=== PATIENT | female | born 1980 | race Caucasian/White ===

== ENCOUNTER 2017-01-11 14:02 | Inpatient (IN) | payer OTHER ==
[2017-01-11] MEDS: PREDNISONE 20 MG TABLET PO SCH (18:07)
[2017-01-11] MEDS: ACETAMINOPHEN 325 MG TABLET PO PRN ×2 (18:08→22:09)
--- NOTE | 2017-01-11 19:17 | PDOC H&P ---
History of Present Illness Admission Date/PCP: 01/11/17 14:02 TONIA GRIMES NP History of Present Illness: GUSTABO VERMA is a 36 year old female with no significant past medical history who presented to Dr. Han's office with complaints of bruising. The patient awoke 3 days ago with a quarter size bruise on her right forearm. Later on today, the patient seemed to think that the bruise with expanding. She did not recall hurting herself. The next day she noticed more bruises as well as spots on her feet and legs. She went in to see her PCP, Tonia Grimes, nurse practitioner, and was found to have a platelet count of 12. According to her recollection she has not been sick. Well over 3 months ago she recalls having some sort of viral gastroenteritis. She has not started any new medications in the last several months. 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 She feels that this is unusual for her. She feels achy all over but denies any other issues. She denies any bleeding. No blood in the stool, urine, epistaxis, coughing up blood or throwing up blood. In the office, her hgb was found to be 9.2, down from 13.7 yesterday. Past Medical History Medical History: None Past Surgical History Past Surgical History: Reports: Appendectomy Social History Information Source: Patient Lives with: Spouse/Significant other Smoking Status: Former Smoker Frequency of Alcohol Use: Occasional Hx Recreational Drug Use: No Past Social History Note: The patient quit smoking 11 years ago. - Advance Directive Resuscitation Status: Full Code Family History Family History: CAD, Hypertension Parental Family History Reviewed: Yes Children Family History Reviewed: Yes Sibling(s) Family History Reviewed.: Yes Medication/Allergy Home Medications: Bupropion HCl [Bupropion Xl] 150 mg PO DAILY 01/11/17 Citalopram Hydrobromide [Celexa 20 mg Tablet] 20 mg PO DAILY 01/11/17 Loratadine [Claritin] 10 mg PO DAILY 01/11/17 Montelukast Sodium [Singulair 10 mg Tablet] 10 mg PO QHS 01/11/17 Norethindrone-E.estradiol-Iron [Lo Loestrin Fe 1-10 Tablet] 1 each PO QHS Allergies/Adverse Reactions: No Known Allergies Allergy (Unverified 10/07/12 03:32) Review of Systems Review of Systems: Review of systems positive for that listed in the HPI. In addition to this she denies any fever, chills, vomiting, blood in the stool or urine, coughing up blood or throwing up blood. She denies diarrhea, constipation, weight changes, loss of appetite or abdominal pain. She does occasionally have hot flashes and she has had some burning of the eyes since all of this happened. Physical Exam Vital Signs: GENERAL: [This is a well-developed well-nourished appearing overweight white female resting in bed currently in no acute distress. HEENT: Normocephalic. Atraumatic. Trachea is midline. Sclera are anicteric. Moist mucous membranes.] HEART: [Regular rate and rhythm. No murmurs, rubs or gallops.] LUNGS: [Clear to auscultation bilaterally with equal rise and fall of the chest. ] ABDOMEN: [Soft, nontender, nondistended with normoactive bowel sounds] EXTREMETIES: [No clubbing, cyanosis or edema. 2+ peripheral pulses bilaterally. ] NEURO: [Awake, alert and oriented 3. Cranial nerves II through XII are specifically intact. Strength is 5 out of 5 in the upper and lower extremities bilaterally. Skin: The patient has an old bruise by her bra line on the left and a newer bruise by her bra line on the right side of her chest respectively. She also has scattered petechiae in the feet and ankles and on the thigh as well. She has a solitary petechiae in the left eye. She has ecchymosis that seems to be nearly resolved of the right forearm.] Assessment & Plan - Diagnosis (1) Idiopathic thrombocytopenia Plan: Prednisone 50 mg p.o. is recommended. At this point an IV has not been established because of the patient's platelet count. At some point an IV will need to be established in case of emergencies or the desire to switch to IV steroids. Dr. Han will be following this patient. (2) Depression Plan: Continue home medications. (3) Tobacco abuse Plan: Smoking cessation is advised. - Time Time Spent: 30 to 50 Minutes Within: within 72 hours - Inpatient Certification Medical Necessity: Need Close Monitoring Due to Risk of Patient Decompensation
[2017-01-11] MEDS ORDERED: NORETHINDRONE E ESTRADIOL IRON PO SCH (22:00)
[2017-01-11] MEDS: MONTELUKAST SODIUM 10 MG TABLET PO SCH (22:06)
[2017-01-11] MEDS: BUPROPION HCL 75 MG TABLET PO SCH (22:06)
[2017-01-12] MEDS: HYDROCODONE/ACETAMINOPHEN 7.5-325 MG TABLET PO PRN ×2 (01:22→22:04)
[2017-01-12 07:28] LABS: ABSOLUTE LYMPHOCYTES (AUTO) 1.8 10^3/uL (0.5-4.7); ABSOLUTE MONOCYTES (AUTO) 0.4 10^3/uL (0.1-1.4); ABSOLUTE NEUT (AUTO) 9.5 10^3/uL (1.7-8.2); BASOPHILS % (AUTO) 0.1 % (0-2); HEMATOCRIT 38.2 % (36.0-47.0); HEMOGLOBIN 13.9 g/dL (12.0-15.5); HGB HCT DIFFERENCE 3.5; LYMPHOCYTES % (AUTO) 15.4 % (13-45); MEAN CORPUSCULAR HEMOGLOBIN 30.6 pg (27.0-33.4); MEAN CORPUSCULAR HGB CONC 36.4 g/dL (32.0-36.0); MEAN CORPUSCULAR VOLUME 84 fl (80-97); MONOCYTES % (AUTO) 3.5 % (3-13); RED BLOOD COUNT 4.54 10^6/uL (3.72-5.28); RED CELL DISTRIBUTION WIDTH 12.8 % (11.5-14.0); WHITE BLOOD COUNT 11.8 10^3/uL (4.0-10.5)
[2017-01-12 07:30] LABS: ANION GAP 12 (5-19); BLOOD UREA NITROGEN 11 mg/dL (7-20); CALCIUM 9.4 mg/dL (8.4-10.2); CARBON DIOXIDE 22 mmol/L (22-30); CHLORIDE 107 mmol/L (98-107); CREATININE RESULT 0.73 mg/dL (0.52-1.25); GLUCOSE 112 mg/dL (75-110); MAGNESIUM 2.2 mg/dL (1.6-2.3); POTASSIUM 4.5 mmol/L (3.6-5.0); SODIUM 141.4 mmol/L (137-145)
[2017-01-12] MEDS: LORATADINE 10 MG TABLET PO SCH (09:18)
[2017-01-12] MEDS: PREDNISONE 20 MG TABLET PO SCH ×2 (09:18→17:05)
[2017-01-12] MEDS: CITALOPRAM HYDROBROMIDE 20 MG TABLET PO SCH (09:18)
[2017-01-12] MEDS: BUPROPION HCL 75 MG TABLET PO SCH ×2 (09:19→22:04)
--- NOTE | 2017-01-12 09:42 | PDOC CONSULTATION ---
Consultation Consult Date: 01/12/17 Attending physician:: IRINA TAVARES Consult reason:: ITP History of Present Illness Admission Date/PCP: 01/11/17 14:42 STEFAN SMART NP Patient complains of: bruising History of Present Illness: Ms. Taylor is a 36 year old female whom I met for the first time yesterday in my office. She presented with bruising and a PLT count of 12. 3 days prior, she had awoken with a quarter sized bruise on her forearm. Over the next 24 hours, it expanded to a larger area of echymosis. She denies any bleeding other than bruising of her skin. She denies any recent infections or new medications. She has muscle aches all over and has more daytime sleepiness. 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 Lives with: Spouse/Significant other Smoking Status: Former Smoker Frequency of Alcohol Use: Occasional Hx Recreational Drug Use: No Hx Prescription Drug Abuse: No - Advance Directive Resuscitation Status: Full Code Family History Family History: CAD, Hypertension Parental Family History Reviewed: Yes - Paternal grandfather with lung cancer. Father with HTN and hyperlipidemia Children Family History Reviewed: Yes Sibling(s) Family History Reviewed.: Yes Medication/Allergy Home Medications: Bupropion HCl [Bupropion Xl] 150 mg PO DAILY 01/11/17 Citalopram Hydrobromide [Celexa 20 mg Tablet] 20 mg PO DAILY 01/11/17 Loratadine [Claritin] 10 mg PO DAILY 01/11/17 Montelukast Sodium [Singulair 10 mg Tablet] 10 mg PO QHS 01/11/17 Norethindrone-E.estradiol-Iron [Lo Loestrin Fe 1-10 Tablet] 1 each PO QHS Allergies/Adverse Reactions: No Known Allergies Allergy (Unverified 10/07/12 03:32) Review of Systems Constitutional: PRESENT: fatigue. ABSENT: headache(s), weakness Eyes: ABSENT: visual disturbances Ears: ABSENT: hearing changes Nose, Mouth, and Throat: ABSENT: sore throat Cardiovascular: ABSENT: chest pain, palpitations Respiratory: ABSENT: cough, dyspnea Gastrointestinal: ABSENT: constipation, diarrhea, nausea, vomiting Genitourinary: ABSENT: dysuria Musculoskeletal: PRESENT: as per HPI Integumentary: PRESENT: as per HPI Neurological: ABSENT: confusion, numbness, tingling Hematologic/Lymphatic: PRESENT: easy bruising Physical Exam Vital Signs: Temp Pulse Resp BP Pulse Ox 97.5 F 69 18 123/75 99 01/12/17 07:34 01/12/17 07:34 01/12/17 07:34 01/12/17 07:34 01/12/17 07:34 Intake & Output 01/11/17 01/12/17 01/13/17 06:59 06:59 05:59 Intake Total 1380 Balance 1380 Weight 89.3 kg General appearance: PRESENT: no acute distress, well-nourished, other - female. Head exam: PRESENT: atraumatic Eye exam: PRESENT: conjunctiva pink, PERRLA Mouth exam: PRESENT: moist, tongue midline Neck exam: ABSENT: JVD, tenderness Respiratory exam: PRESENT: clear to auscultation jacqueline Cardiovascular exam: PRESENT: RRR. ABSENT: gallop, rubs GI/Abdominal exam: PRESENT: normal bowel sounds, soft. ABSENT: tenderness Rectal exam: PRESENT: deferred Extremities exam: ABSENT: pedal edema Musculoskeletal exam: PRESENT: ambulatory Neurological exam: PRESENT: alert, normal gait Psychiatric exam: PRESENT: appropriate affect Skin exam: PRESENT: other - Echymoses over forarms and back. Results Laboratory Results: 01/12/17 06:14 01/12/17 06:14 01/12/17 01/12/17 06:14 06:14 WBC 11.8 H RBC 4.54 Hgb 13.9 Hct 38.2 MCV 84 MCH 30.6 MCHC 36.4 H RDW 12.8 Plt Count 15 L* Seg Neutrophils % 81.0 H Lymphocytes % 15.4 Monocytes % 3.5 Eosinophils % 0.0 Basophils % 0.1 Absolute Neutrophils 9.5 H Absolute Lymphocytes 1.8 Absolute Monocytes 0.4 Absolute Eosinophils 0.0 Absolute Basophils 0.0 Sodium 141.4 Potassium 4.5 Chloride 107 Carbon Dioxide 22 Anion Gap 12 BUN 11 Creatinine 0.73 Est GFR ( Amer) > 60 Est GFR (Non-Af Amer) > 60 Glucose 112 H Calcium 9.4 Magnesium 2.2 Assessment & Plan - Diagnosis (1) Idiopathic thrombocytopenia Is this a current diagnosis for this admission?: Yes Plan: Continue prednisone 1 mg/kg/day in divided doses. Await Bone Marrow Biopsy results from yesterday. Watch for bleeding. Her HGB is stable today.
[2017-01-12] MEDS ORDERED: (PENDING PHARMACY ID) (Loratadine [Claritin] 10 MG) PO SCH (10:00)
[2017-01-12] MEDS ORDERED: (PENDING PHARMACY ID) (Bupropion Hcl [Bupropion Xl] 150 MG) PO SCH (10:00)
[2017-01-12] MEDS: ACETAMINOPHEN 325 MG TABLET PO PRN (11:38)
--- NOTE | 2017-01-12 17:23 | PDOC PROGRESS REPORT ---
Subjective Progress Note for:: 01/12/17 Subjective:: Feeling a little better. Reports of easy bruising with IV placement all pressure but no overt bleeding. No dysuria polyuria, no urinary frequency, no hematuria or hematemesis or rectal bleeding. Denies abdominal pain, no nausea or vomiting. Physical Exam Vital Signs: Temp Pulse Resp BP Pulse Ox 97.9 F 90 18 118/79 98 01/12/17 15:54 01/12/17 15:54 01/12/17 15:54 01/12/17 15:54 01/12/17 15:54 Intake & Output 01/11/17 01/12/17 01/13/17 06:59 06:59 05:59 Intake Total 1380 Balance 1380 Weight 89.3 kg Exam: GENERAL: Well-developed, no acute distress CARDIOVASCULAR: RRR, normal S1-S2 LUNGS: CTA bilaterally ABDOMEN: Soft, NT, NL bowel sounds EXTREMITIES: No edema, clubbing, cyanosis NEUROLOGICAL: Alert, oriented x 3, nonfocal SKIN: Ecchymosis right forearm, scattered petechiae in the feet and ankles and on the thigh but stable. Results Laboratory Results: 01/12/17 06:14 01/12/17 06:14 01/12/17 01/12/17 06:14 06:14 WBC 11.8 H RBC 4.54 Hgb 13.9 Hct 38.2 MCV 84 MCH 30.6 MCHC 36.4 H RDW 12.8 Plt Count 15 L* Seg Neutrophils % 81.0 H Lymphocytes % 15.4 Monocytes % 3.5 Eosinophils % 0.0 Basophils % 0.1 Absolute Neutrophils 9.5 H Absolute Lymphocytes 1.8 Absolute Monocytes 0.4 Absolute Eosinophils 0.0 Absolute Basophils 0.0 Sodium 141.4 Potassium 4.5 Chloride 107 Carbon Dioxide 22 Anion Gap 12 BUN 11 Creatinine 0.73 Est GFR ( Amer) > 60 Est GFR (Non-Af Amer) > 60 Glucose 112 H Calcium 9.4 Magnesium 2.2 Assessment & Plan - Diagnosis (1) Idiopathic thrombocytopenia Is this a current diagnosis for this admission?: Yes Plan: Platelets stable to slightly improved today. We will continue prednisone 1 mg/ kg/day in divided doses per Dr. Souza's of heme/onc recommendation. Continue to monitor CBC/platelets. (2) Depression Is this a current diagnosis for this admission?: Yes Plan: Stable. Continue current home medications.
[2017-01-12] MEDS: MONTELUKAST SODIUM 10 MG TABLET PO SCH (22:04)
[2017-01-13 06:01] LABS: ABSOLUTE LYMPHOCYTES (AUTO) 2.1 10^3/uL (0.5-4.7); ABSOLUTE MONOCYTES (AUTO) 0.8 10^3/uL (0.1-1.4); ABSOLUTE NEUT (AUTO) 14.8 10^3/uL (1.7-8.2); HEMATOCRIT 37.5 % (36.0-47.0); HEMOGLOBIN 13.4 g/dL (12.0-15.5); HGB HCT DIFFERENCE 2.7; LYMPHOCYTES % (AUTO) 11.6 % (13-45); MEAN CORPUSCULAR HEMOGLOBIN 30.1 pg (27.0-33.4); MEAN CORPUSCULAR HGB CONC 35.7 g/dL (32.0-36.0); MEAN CORPUSCULAR VOLUME 84 fl (80-97); MONOCYTES % (AUTO) 4.5 % (3-13); RED BLOOD COUNT 4.44 10^6/uL (3.72-5.28); RED CELL DISTRIBUTION WIDTH 12.9 % (11.5-14.0); SEGMENTED NEUTROPHILS % (AUTO) 83.9 % (42-78); WHITE BLOOD COUNT 17.6 10^3/uL (4.0-10.5)
[2017-01-13 06:21] LABS: ANION GAP 13 (5-19); BLOOD UREA NITROGEN 16 mg/dL (7-20); CALCIUM 9.5 mg/dL (8.4-10.2); CARBON DIOXIDE 25 mmol/L (22-30); CHLORIDE 106 mmol/L (98-107); CREATININE RESULT 0.71 mg/dL (0.52-1.25); GLUCOSE 115 mg/dL (75-110); POTASSIUM 4.2 mmol/L (3.6-5.0); SODIUM 143.7 mmol/L (137-145)
[2017-01-13] MEDS: CITALOPRAM HYDROBROMIDE 20 MG TABLET PO SCH (09:25)
[2017-01-13] MEDS: LORATADINE 10 MG TABLET PO SCH (09:25)
[2017-01-13] MEDS: PREDNISONE 20 MG TABLET PO SCH ×2 (09:26→17:36)
[2017-01-13] MEDS: BUPROPION HCL 75 MG TABLET PO SCH ×2 (09:26→21:16)
[2017-01-13] MEDS: MONTELUKAST SODIUM 10 MG TABLET PO SCH (21:17)
--- NOTE | 2017-01-14 07:31 | PDOC PROGRESS REPORT ---
Subjective Progress Note for:: 01/13/17 Subjective:: Feeling better. Bruisings better/improving and no overt bleeding. No dysuria polyuria, no urinary frequency, no hematuria or hematemesis or rectal bleeding. Denies abdominal pain, no nausea or vomiting. Physical Exam Vital Signs: Temp Pulse Resp BP Pulse Ox 98.3 F 77 15 128/74 H 100 01/13/17 19:00 01/13/17 19:00 01/13/17 19:00 01/13/17 19:00 01/13/17 19:00 Intake & Output 01/12/17 01/13/17 01/14/17 07:59 06:59 06:59 Intake Total 1320 Output Total 900 Balance 420 Weight Exam: GENERAL: Well-developed, no acute distress CARDIOVASCULAR: RRR, normal S1-S2 LUNGS: CTA bilaterally ABDOMEN: Soft, NT, NL bowel sounds EXTREMITIES: No edema, clubbing, cyanosis NEUROLOGICAL: Alert, oriented x 3, nonfocal SKIN: Ecchymosis right forearm, scattered petechiae in the feet and ankles and on the thigh but improving Results Laboratory Results: 01/13/17 05:00 01/13/17 05:00 01/13/17 01/13/17 05:00 05:00 WBC 17.6 H RBC 4.44 Hgb 13.4 Hct 37.5 MCV 84 MCH 30.1 MCHC 35.7 RDW 12.9 Plt Count 23 L* Seg Neutrophils % 83.9 H Lymphocytes % 11.6 L Monocytes % 4.5 Eosinophils % 0.0 Basophils % 0.0 Absolute Neutrophils 14.8 H Absolute Lymphocytes 2.1 Absolute Monocytes 0.8 Absolute Eosinophils 0.0 Absolute Basophils 0.0 Sodium 143.7 Potassium 4.2 Chloride 106 Carbon Dioxide 25 Anion Gap 13 BUN 16 Creatinine 0.71 Est GFR ( Amer) > 60 Est GFR (Non-Af Amer) > 60 Glucose 115 H Calcium 9.5 Assessment & Plan - Diagnosis (1) Idiopathic thrombocytopenia Is this a current diagnosis for this admission?: Yes Plan: Platelets improving. We will continue prednisone 1 mg/kg/day in divided doses per Dr. Souza's of heme/onc recommendation. Continue to monitor platelets. Suspect leukocytosis is secondary to steroids. (2) Depression Is this a current diagnosis for this admission?: Yes Plan: Stable. Continue current home medications.
--- NOTE | 2017-01-14 08:08 | PDOC PROGRESS REPORT ---
Subjective Progress Note for:: 01/14/17 Subjective:: Patient without compleints today. Anxious to go home. No evidence of active bleeding. Physical Exam Vital Signs: Temp Pulse Resp BP Pulse Ox 97.9 F 81 14 121/73 100 01/14/17 07:17 01/14/17 07:17 01/14/17 07:17 01/14/17 07:17 01/14/17 07:17 Intake & Output 01/13/17 01/14/17 01/15/17 06:59 06:59 06:59 Intake Total 2300 Output Total 2200 Balance 100 Weight 89.6 kg General appearance: PRESENT: no acute distress, cooperative, well-nourished Exam: Sitting up in bed having breakfast. Respiratory exam: PRESENT: clear to auscultation jacqueline Cardiovascular exam: PRESENT: RRR Neurological exam: PRESENT: alert, awake, oriented to person, oriented to place , oriented to time, oriented to situation Results Laboratory Results: 01/13/17 05:00 01/13/17 05:00 Assessment & Plan - Diagnosis (1) Idiopathic thrombocytopenia Is this a current diagnosis for this admission?: Yes Plan: Await today's PLT. If higher than yesterday, OK to discharge home on current dose of Prednisone. She will need to follow-up in my office for CBC weekly. She was instructed to continue stomach protector while on prednisone.
[2017-01-14 10:26] LABS: PATH REVIEW PATHOLOGIST REVIEWED
[2017-01-14] MEDS: CITALOPRAM HYDROBROMIDE 20 MG TABLET PO SCH (10:29)
[2017-01-14] MEDS: PREDNISONE 20 MG TABLET PO SCH (10:29)
[2017-01-14] MEDS: BUPROPION HCL 75 MG TABLET PO SCH (10:29)
[2017-01-14] MEDS: LORATADINE 10 MG TABLET PO SCH (10:30)
[2017-01-14 12:47] LABS: ABSOLUTE MONOCYTES (AUTO) 1.3 10^3/uL (0.1-1.4); ABSOLUTE NEUT (AUTO) 14.4 10^3/uL (1.7-8.2); HEMATOCRIT 38.7 % (36.0-47.0); HEMOGLOBIN 13.5 g/dL (12.0-15.5); HGB HCT DIFFERENCE 1.8; LYMPHOCYTES % (AUTO) 20.1 % (13-45); MEAN CORPUSCULAR HEMOGLOBIN 29.8 pg (27.0-33.4); MEAN CORPUSCULAR VOLUME 85 fl (80-97); MONOCYTES % (AUTO) 6.7 % (3-13); RED BLOOD COUNT 4.55 10^6/uL (3.72-5.28); RED CELL DISTRIBUTION WIDTH 12.9 % (11.5-14.0); SEGMENTED NEUTROPHILS % (AUTO) 73.2 % (42-78); WHITE BLOOD COUNT 19.7 10^3/uL (4.0-10.5)
[2017-01-14] MEDS ORDERED: HYDROCODONE/ACETAMINOPHEN 7.5-325 MG TABLET PO PRN (13:00)
[2017-01-14] MEDS ORDERED: ACETAMINOPHEN 325 MG TABLET PO PRN (13:00)
[2017-01-14 13:05] LABS: ANION GAP 13 (5-19); BLOOD UREA NITROGEN 17 mg/dL (7-20); CALCIUM 9.3 mg/dL (8.4-10.2); CARBON DIOXIDE 27 mmol/L (22-30); CHLORIDE 103 mmol/L (98-107); GLUCOSE 96 mg/dL (75-110); POTASSIUM 3.7 mmol/L (3.6-5.0); SODIUM 142.9 mmol/L (137-145)
[2017-01-14 15:35] VITALS: BP 127/54
--- NOTE | 2017-01-14 15:59 | PDOC DISCHARGE SUMMARY ---
General - Admit/Disc Date/PCP Admission Date/Primary Care Provider: 01/11/17 14:42 STEFAN SMART NP Discharge Date: 01/14/17 - Discharge Diagnosis (1) Idiopathic thrombocytopenia Is this a current diagnosis for this admission?: Yes Summary: Continue prednison. F/u Dr. Han for weekly cbc. (2) Depression Is this a current diagnosis for this admission?: Yes Summary: Stable. Continue current home medications. - Additional Information Resuscitation Status: Full Code Discharge Diet: Regular Discharge Activity: Activity As Tolerated Home Medications: Bupropion HCl [Bupropion Xl] 150 mg PO DAILY 01/11/17 Citalopram Hydrobromide [Celexa 20 mg Tablet] 20 mg PO DAILY 01/11/17 Loratadine [Claritin] 10 mg PO DAILY 01/11/17 Montelukast Sodium [Singulair 10 mg Tablet] 10 mg PO QHS 01/11/17 Norethindrone-E.estradiol-Iron [Lo Loestrin Fe 1-10 Tablet] 1 each PO QHS Acetaminophen [Tylenol 325 mg Tablet] 650 mg PO Q4HP PRN tablet 01/14/17 Pantoprazole Sodium [Protonix] 40 mg PO DAILY #30 tablet. 01/14/17 Prednisone [Deltasone 20 mg Tablet] 50 mg PO BID 14 Days tablet 01/14/17 History of Present Illness History of Present Illness: GUSTABO VERMA is a 36 year old female Hospital Course Hospital Course: [id number] female who presented with increased bruising. Platelet was found to be markedly low apparently 12 at the office and 15 here at the hospital. Patient was admitted to hospitalist service. Patient was seen by Dr. Souza of heme/chronic and she was treated with prednisone 1 mg/kg per day in divided doses, which came out to 50 mg twice daily. Patient is doing better , platelet has steadily increased and it is 28,000 today. Bruisings are better , she denies overt bleeding, no headache, no stiff neck, photophobia, and she has been cleared for discharge. She is to follow-up with Dr. Han in clinic for weekly CBC. She is to continue prednisone 50 mg twice daily as well as she has been treated with Protonix 40 mg p.o. daily for ulcer prophylaxis given the high dose of prednisone. Physical Exam Vital Signs: Temp Pulse Resp BP Pulse Ox 97.8 F 74 16 124/80 100 01/14/17 11:38 01/14/17 11:38 01/14/17 11:38 01/14/17 11:38 01/14/17 11:38 Intake & Output 01/13/17 01/14/17 01/15/17 06:59 06:59 06:59 Intake Total 2300 0 Output Total 2200 Balance 100 0 Weight 89.6 kg Exam: GENERAL: Well-developed, no acute distress CARDIOVASCULAR: RRR, normal S1-S2 LUNGS: CTA bilaterally ABDOMEN: Soft, NT, NL bowel sounds EXTREMITIES: No edema, clubbing, cyanosis NEUROLOGICAL: Alert, oriented x 3, nonfocal SKIN: Ecchymosis right forearm, scattered petechiae in the feet and ankles and on the thigh but improving Results Laboratory Results: 01/14/17 12:11 01/14/17 12:11 01/14/17 01/14/17 12:11 12:11 WBC 19.7 H RBC 4.55 Hgb 13.5 Hct 38.7 MCV 85 MCH 29.8 MCHC 35.0 RDW 12.9 Plt Count 28 L* Seg Neutrophils % 73.2 Lymphocytes % 20.1 Monocytes % 6.7 Eosinophils % 0.0 Basophils % 0.0 Absolute Neutrophils 14.4 H Absolute Lymphocytes 4.0 Absolute Monocytes 1.3 Absolute Eosinophils 0.0 Absolute Basophils 0.0 Sodium 142.9 Potassium 3.7 Chloride 103 Carbon Dioxide 27 Anion Gap 13 BUN 17 Creatinine 0.80 Est GFR ( Amer) > 60 Est GFR (Non-Af Amer) > 60 Glucose 96 Calcium 9.3 Plan Discharge Plan: As in hospital course above. Time Spent: Greater than 30 Minutes
== END 2017-01-14 16:20 | disposition home or self-care (01) | DRG 813 ==
LOC: UNDOADMIN 14:02 → 5 14:02
PROVIDERS: ADMIT Hospitalist; ATTEND Hospitalist
DX: D69.3 Immune thrombocytopenic purpura (principal); F32.9 Major depressive disorder, single episode, unspecified; R23.3 Spontaneous ecchymoses; Z90.49 Acquired absence of other specified parts of digestive tract; Z87.891 Personal history of nicotine dependence; Z82.49 Family history of ischemic heart disease and other diseases of the circulatory system
CPT/HCPCS: 36415; 80048; 83735; 85025; J7512

== ENCOUNTER 2017-01-29 07:59 | Outpatient (CLI) | payer OTHER ==
[~2017-01-29 07:59] MED LIST: ACETAMINOPHEN 325 MG TABLET PO PRN; DEXTROSE 5%-WATER 250 ML IV PRN; DIPHENHYDRAMINE HCL 50 MG/ML VIAL IV PRN; IMMUNE GLOB GAM CAPRYLATE IV PRN; [UNRECOGNIZED DRUG - OTHER] IV PRN
[2017-01-29 09:15] VITALS: BP 123/80
== END 2017-01-29 13:39 | disposition home or self-care (01) ==
LOC: II 07:59 → 5TH 08:02 → II 13:39
PROVIDERS: ATTEND Internal Medicine
PROC: 30233S1 Transfusion of Nonautologous Globulin into Peripheral Vein, Percutaneous Approach (ICD-10-PCS; principal; 2017-01-29)
DX: D69.3 Immune thrombocytopenic purpura (principal)
CPT/HCPCS: 96413; 96415; 96374; 96417; J1561 ×2; J1200; J3490; 96365; 96366; 96375

== ENCOUNTER 2017-01-30 07:56 | Outpatient (CLI) | payer OTHER ==
[2017-01-30 08:38] VITALS: BP 127/78
== END 2017-01-30 11:52 | disposition home or self-care (01) ==
LOC: II 07:56 → 5TH 07:59 → II 11:52
PROVIDERS: ATTEND Internal Medicine
PROC: 30233S1 Transfusion of Nonautologous Globulin into Peripheral Vein, Percutaneous Approach (ICD-10-PCS; principal; 2017-01-30)
PROC: 3E033GC Introduction of Other Therapeutic Substance into Peripheral Vein, Percutaneous Approach (ICD-10-PCS; 2017-01-30)
DX: D69.3 Immune thrombocytopenic purpura (principal)
CPT/HCPCS: 96413; 96415; 96374; 96417; J1561 ×2; J1200; J3490; 96365; 96366; 96375

== ENCOUNTER 2017-02-19 07:43 | Outpatient (CLI) | payer OTHER ==
[~2017-02-19 07:43] MED LIST changes: -DEXTROSE 5%-WATER 250 ML IV PRN; -IMMUNE GLOB GAM CAPRYLATE IV PRN; +NORMAL SALINE 250 ML IV PRN; +NORMAL SALINE IV PRN; +RITUXIMAB IV PRN; -[UNRECOGNIZED DRUG - OTHER] IV PRN
[2017-02-19 08:49] VITALS: BP 121/86
[2017-02-19 09:50] LABS: ABSOLUTE LYMPHOCYTES (AUTO) 1.5 10^3/uL (0.5-4.7); ABSOLUTE MONOCYTES (AUTO) 0.6 10^3/uL (0.1-1.4); ABSOLUTE NEUT (AUTO) 10.3 10^3/uL (1.7-8.2); EOSINOPHILS % (AUTO) 0.1 % (0-6); HEMATOCRIT 39.1 % (36.0-47.0); HEMOGLOBIN 13.5 g/dL (12.0-15.5); HGB HCT DIFFERENCE 1.4; LYMPHOCYTES % (AUTO) 11.9 % (13-45); MEAN CORPUSCULAR HGB CONC 34.6 g/dL (32.0-36.0); MEAN CORPUSCULAR VOLUME 95 fl (80-97); MONOCYTES % (AUTO) 4.7 % (3-13); RED CELL DISTRIBUTION WIDTH 19.8 % (11.5-14.0); SEGMENTED NEUTROPHILS % (AUTO) 83.3 % (42-78); WHITE BLOOD COUNT 12.3 10^3/uL (4.0-10.5)
== END 2017-02-19 14:08 | disposition home or self-care (01) ==
LOC: II 07:43 → 5TH 07:44 → II 14:08
PROVIDERS: ATTEND Internal Medicine Hematology & Oncology
PROC: 3E0330M Introduction of Antineoplastic, Monoclonal Antibody, into Peripheral Vein, Percutaneous Approach (ICD-10-PCS; principal; 2017-02-19)
PROC: 3E033GC Introduction of Other Therapeutic Substance into Peripheral Vein, Percutaneous Approach (ICD-10-PCS; 2017-02-19)
DX: D69.3 Immune thrombocytopenic purpura (principal)
CPT/HCPCS: 36415; 85025; 96413; 96415; 96375; J1200; J7040; J9310

== ENCOUNTER 2017-02-26 07:51 | Outpatient (CLI) | payer OTHER ==
[2017-02-26 09:09] VITALS: BP 125/87
== END 2017-02-26 13:19 | disposition home or self-care (01) ==
LOC: II 07:51 → 5TH 07:57 → II 13:19
PROVIDERS: ATTEND Internal Medicine Hematology & Oncology
PROC: 3E0330M Introduction of Antineoplastic, Monoclonal Antibody, into Peripheral Vein, Percutaneous Approach (ICD-10-PCS; principal; 2017-02-26)
PROC: 3E033GC Introduction of Other Therapeutic Substance into Peripheral Vein, Percutaneous Approach (ICD-10-PCS; 2017-02-26)
DX: D69.3 Immune thrombocytopenic purpura (principal)
CPT/HCPCS: 96413; 96415; 96375; 96417; J1200; J7040; J9310

== ENCOUNTER 2017-03-05 07:48 | Outpatient (CLI) | payer OTHER ==
[2017-03-05 08:20] LABS: HEMATOCRIT 41.5 % (36.0-47.0); HEMOGLOBIN 14.1 g/dL (12.0-15.5); MEAN CORPUSCULAR HEMOGLOBIN 32.6 pg (27.0-33.4); MEAN CORPUSCULAR HGB CONC 34.1 g/dL (32.0-36.0); MEAN CORPUSCULAR VOLUME 96 fl (80-97); RED BLOOD COUNT 4.34 10^6/uL (3.72-5.28); RED CELL DISTRIBUTION WIDTH 18.1 % (11.5-14.0); WHITE BLOOD COUNT 13.9 10^3/uL (4.0-10.5)
[2017-03-05 08:26] VITALS: BP 118/72
[2017-03-05 08:47] LABS: PLATELET COUNT 94 10^3/uL (150-450)
[2017-03-05 08:49] LABS: ABSOLUTE LYMPHOCYTES# (MANUAL) 2.2 10^3/uL (0.5-4.7); ABSOLUTE MONOCYTES # (MANUAL) 0.3 10^3/uL (0.1-1.4); ABSOLUTE NEUTROPHILS# (MANUAL) 11.4 10^3/uL (1.7-8.2); BASOPHILS % (MANUAL) 0 % (0-2); EOSINOPHILS % (MANUAL) 0 % (0-6); LYMPHOCYTES % (MANUAL) 16 % (13-45); MONOCYTES % (MANUAL) 2 % (3-13); SEGMENTED NEUTROPHILS % (MAN) 82 % (42-78); TOTAL CELLS COUNTED 100
[2017-03-05 08:52] LABS: ANISOCYTOSIS 1+; PLATELET COMMENT DECREASED; POIKILOCYTOSIS SLIGHT; POLYCHROMASIA SLIGHT; TEAR DROP CELLS SLIGHT; TOXIC GRANULATION 1+
== END 2017-03-05 12:06 | disposition home or self-care (01) ==
LOC: II 07:48 → 5TH 07:51 → II 12:06
PROVIDERS: ATTEND Internal Medicine Hematology & Oncology
PROC: 3E0330M Introduction of Antineoplastic, Monoclonal Antibody, into Peripheral Vein, Percutaneous Approach (ICD-10-PCS; principal; 2017-03-05)
PROC: 3E033GC Introduction of Other Therapeutic Substance into Peripheral Vein, Percutaneous Approach (ICD-10-PCS; 2017-03-05)
DX: D69.3 Immune thrombocytopenic purpura (principal)
CPT/HCPCS: 36415; 85025; 96367; 96375; J1200; J7040; J9310; 96365; 96366

== ENCOUNTER 2017-03-12 07:52 | Outpatient (CLI) | payer OTHER ==
[2017-03-12 08:35] LABS: ABSOLUTE BASOPHILS # (AUTO) 0.1 10^3/uL (0.0-0.2); ABSOLUTE LYMPHOCYTES (AUTO) 4.1 10^3/uL (0.5-4.7); ABSOLUTE MONOCYTES (AUTO) 0.9 10^3/uL (0.1-1.4); BASOPHILS % (AUTO) 0.3 % (0-2); EOSINOPHILS % (AUTO) 0.2 % (0-6); HEMATOCRIT 42.2 % (36.0-47.0); HEMOGLOBIN 14.4 g/dL (12.0-15.5); LYMPHOCYTES % (AUTO) 21.3 % (13-45); MEAN CORPUSCULAR HEMOGLOBIN 32.7 pg (27.0-33.4); MEAN CORPUSCULAR HGB CONC 34.2 g/dL (32.0-36.0); MEAN CORPUSCULAR VOLUME 96 fl (80-97); MONOCYTES % (AUTO) 4.8 % (3-13); RED BLOOD COUNT 4.42 10^6/uL (3.72-5.28); RED CELL DISTRIBUTION WIDTH 16.8 % (11.5-14.0); SEGMENTED NEUTROPHILS % (AUTO) 73.4 % (42-78); TOTAL CELLS COUNTED % (AUTO) 100 %; WHITE BLOOD COUNT 19.1 10^3/uL (4.0-10.5)
[2017-03-12 08:36] LABS: PLATELET COUNT 88 10^3/uL (150-450)
[2017-03-12 09:22] VITALS: BP 120/72
== END 2017-03-12 12:45 | disposition home or self-care (01) ==
LOC: II 07:52 → 5TH 08:01 → II 12:45
PROVIDERS: ATTEND Internal Medicine Hematology & Oncology
DX: D69.3 Immune thrombocytopenic purpura (principal)
CPT/HCPCS: 36415; 85025; 96413; 96415; 96374; 96417; J1200; J7040; J9310